=== PATIENT | male | born 1970 | race Caucasian/White ===

== ENCOUNTER 2019-12-17 19:46 | Emergency (ER) | payer BC ==
[2019-12-17] MEDS ORDERED: Bacitracin Oint 1 GM U/D Packet TOP ONE (19:53)
[2019-12-17] MEDS ORDERED: Diphtheria,Pertussis(Acell),Tetanus Vaccine 0.5 ML SDV IM ONE (19:53)
--- NOTE | 2019-12-17 20:21 | EDM.PDOC ---
ED HPI GENERAL MEDICAL PROBLEM - General Chief Complaint: Skin Complaint Stated Complaint: WIRE IN RT TOE Time Seen by Provider: 12/17/19 20:05 Source of Information: Reports: Patient History Limitations: Reports: No Limitations - History of Present Illness INITIAL COMMENTS - FREE TEXT/NARRATIVE: 49-year-old male with a foreign body in his third toe on the right foot. He was going up the stairs when a wire impaled the top of his third toe. He has a piece of wire sticking out of the toe. No other injury. He is otherwise healthy. Onset: Sudden Duration: Hour(s): (Within the last 2 hours) Location: Reports: Lower Extremity, Right Associated Symptoms: Reports: No Other Symptoms foot Pain Score (Numeric/FACES): 4 - Related Data Allergies Allergy/AdvReac Type Severity Reaction Status Date / Time No Known Allergies Allergy Verified 12/17/19 20:02 Home Meds: Home Meds NK [No Known Home Meds] 12/17/19 [History] Past Medical History - Past Health History Medical/Surgical History: Denies Medical/Surgical History Social & Family History - Tobacco Use Smoking Status *Q: Never Smoker - Caffeine Use Caffeine Use: Reports: Soda - Recreational Drug Use Recreational Drug Use: No ED ROS GENERAL - Review of Systems Review Of Systems: See Below Constitutional: Denies: Fever HEENT: Reports: No Symptoms Respiratory: Reports: No Symptoms GI/Abdominal: Reports: No Symptoms Neurological: Reports: No Symptoms Free Text/Narrative/Comment: He is not a diabetic, he is healthy he is not current on his tetanus immunization. ED EXAM, SKIN/RASH Exam: See Below Exam Limited By: No Limitations General Appearance: Alert, No Apparent Distress Respiratory/Chest: No Respiratory Distress Extremities: Other (Exam is otherwise limited to the right foot. Patient is a wire sticking out of the top of the middle toe on the radial side, just distal to the MP joint near the web space.) Neurological: Alert, Oriented, Other (No distal paresthesia, sensation is intact ) Psychiatric: Anxious (Somewhat anxious, nervous about needles) Course - Vital Signs Last Recorded V/S: Last Vital Signs Temp 98.2 F 12/17/19 20:05 Pulse 77 12/17/19 20:05 Resp 18 12/17/19 20:05 BP 170/101 H 12/17/19 20:18 Pulse Ox 98 12/17/19 20:05 - Orders/Labs/Meds Orders: Active Orders 24 hr Category Date Time Status Vaccines to be Administered [RC] PER UNIT ROUTINE Care 12/17/19 19:54 Active Meds: Medications Discontinued Medications Generic Name Dose Route Start Last Admin Trade Name Franky PRN Reason Stop Dose Admin Bacitracin 1 dose 12/17/19 19:53 12/17/19 20:15 Bacitracin Oint 1 Gm TOP 12/17/19 19:54 1 dose ONETIME ONE Administration Diphtheria/Tetanus/Acell Pertussis 0.5 ml 12/17/19 19:53 12/17/19 20:15 Adacel IM 12/17/19 19:54 0.5 ml .ONCE ONE Administration Lidocaine HCl 5 ml 12/17/19 19:53 12/17/19 20:15 Xylocaine-Mpf 1% INJECT 12/17/19 19:54 5 ml ONETIME ONE Administration - Re-Assessments/Exams Free Text/Narrative Re-Assessment/Exam: 12/17/19 20:19 The area was sterilized with alcohol, infiltrated with lidocaine and the wire was removed with countertraction. There was about three fourths of an inch of wire into the subcutaneous tissue. It was cleansed thoroughly with alcohol, bacitracin was applied with a bandage and he was given a Tdap booster. He can increase activity as tolerated, keep the wound clean while healing, and return if concerns. Departure - Departure Time of Disposition: 20:28 Disposition: Home, Self-Care 01 Clinical Impression: Foreign body of toe of right foot Qualifiers: Encounter type: initial encounter Qualified Code(s): S90.454A - Superficial foreign body, right lesser toe(s), initial encounter - Discharge Information Instructions: Hand or Foot Foreign Body, Adult Referrals: PCP,None [Primary Care Provider] - Forms: ED Department Discharge Care Plan Goals: Keep wound covered and clean while healing and increase activity as tolerated. Recheck if concerns of infection or not healing satisfactorily. Sepsis Event Note - Evaluation Sepsis Screening Result: No Definite Risk - Focused Exam Vital Signs: Vital Signs Temp Pulse Resp BP Pulse Ox 12/17/19 20:18 170/101 H 12/17/19 20:05 98.2 F 77 18 195/119 H 98 Date Exam was Performed: 12/17/19 Time Exam was Performed: 20:46 - My Orders Last 24 Hours: My Active Orders 12/17/19 19:54 Vaccines to be Administered [RC] PER UNIT ROUTINE - Assessment/Plan Last 24 Hours: My Active Orders 12/17/19 19:54 Vaccines to be Administered [RC] PER UNIT ROUTINE
== END 2019-12-17 20:28 | disposition home or self-care (01) ==
LOC: JP.ED 19:46
DX: S90.454A Superficial foreign body, right lesser toe(s), initial encounter (principal); Z23 Encounter for immunization; W45.8XXA Other foreign body or object entering through skin, initial encounter
CPT/HCPCS: 90471; 90715; 99283; J2001; 28190

== ENCOUNTER 2020-09-10 21:54 | Emergency (ER) | payer OTHER, BC ==
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
[2020-09-10] MEDS ORDERED: Ibuprofen 800 MG Tab PO ONE (22:28)
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
== END 2020-09-10 23:36 | disposition home or self-care (01) ==
LOC: JP.ED 21:54
DX: S16.1XXA Strain of muscle, fascia and tendon at neck level, initial encounter (principal); S00.03XA Contusion of scalp, initial encounter; S60.511A Abrasion of right hand, initial encounter; S60.512A Abrasion of left hand, initial encounter; V47.5XXA Car driver injured in collision with fixed or stationary object in traffic accident, initial encounter
CPT/HCPCS: 70450; 72125; 99283; 99284-25; A9270-GY